=== PATIENT | male | born 2000 | race Caucasian/White ===

== ENCOUNTER → 2022-12-30 15:10 | Outpatient (CLI) | payer SELFPAY ==
[2022-12-30 22:29] LABS: Urine N gonorrhoeae NOT DETECTED
[2022-12-30 22:40] LABS: Urine Chlamydia NOT DETECTED
== END ==
PROVIDERS: PCP Family Medicine; Visit Provider Family Medicine
DX: R10.9 Unspecified abdominal pain (principal)
CPT/HCPCS: 87491; 87591

== ENCOUNTER → 2023-01-06 10:58 | Outpatient (CLI) | payer SELFPAY ==
--- NOTE | 2023-01-06 11:15 | DI.US.S_ITS ---
PROCEDURE: US ABDOMEN LIMITED INDICATIONS: LEFT LOWER QUADRANT PAIN TECHNIQUE: Limited abdominal ultrasound in the left lower quadrant was obtained COMPARISON: None. FINDINGS: Scanning the right left lower quadrant shows appropriate anterior abdominal wall and intraperitoneal peristalsing bowel. There is no evidence of hernia or mass lesion. No free fluid. IMPRESSION: 1. Unremarkable left lower quadrant abdominal ultrasound Approved by: Arturo Gomez M.D. on 01/06/2023 at 14:18
== END ==
PROVIDERS: PCP Family Medicine; Referring Provider Family Medicine; Visit Provider Family Medicine
DX: R10.32 Left lower quadrant pain (principal)
CPT/HCPCS: 76705